=== PATIENT | female | born 1960 | race Caucasian/White ===

== ENCOUNTER 2018-02-08 08:23 | Outpatient (CLI) | payer MEDICARE | END 2018-02-08 08:24 | disposition home or self-care (01) | LOC: BICMAMMO 08:23 | PROVIDERS: ATTEND Obstetrics & Gynecology | DX: Z12.31 Encounter for screening mammogram for malignant neoplasm of breast (principal); R92.1 Mammographic calcification found on diagnostic imaging of breast | CPT/HCPCS: 77063; 77067 ==

== ENCOUNTER 2018-05-10 10:29 | Emergency (ER) | payer MEDICARE ==
[2018-05-10 11:28] LABS: #Basophils 0.1 thou/uL (0.0-0.2); #Eosinphils 0.3 thou/uL (0.0-0.7); #Lymphocytes 4.1 thou/uL (1.20-3.40); #Monocytes 0.7 thou/uL (0.11-0.59); #Neutrophils 4.7 thou/uL (1.40-6.50); %Basophils 0.9 % (0.0-1.0); %Lymphocytes 41.5 % (21.0-51.0); %Monocytes 7.1 % (0.0-10.0); %Neutrophils 47.5 % (42.0-75.0); Hemoglobin 14.9 g/dL (12.0-16.0); Mean Corpuscular HGB CONC 32.8 g/dL (32.0-36.0); Mean Corpuscular Hemoglobin 29.9 pg (27.0-31.0); Mean Corpuscular Volume 91.1 fL (78.0-98.0); Mean Platelet Volume 9.1 fL (7.4-10.4); Platelet Count 191 thou/uL (130-400); RBC Distribution Width 12.8 % (11.5-14.5); Red Blood Cell (RBC) Count 4.97 mill/uL (4.20-5.40); White Blood Cell (WBC) Count 9.8 thou/uL (4.8-10.8)
[2018-05-10 11:53] LABS: ALT (SGPT) 26 U/L (8-55); AST (SGOT) 21 U/L (5-34); Albumin 4.4 g/dL (3.5-5.0); Alkaline Phosphatase 73 U/L (40-150); Anion Gap 14 mmol/L (10-20); BUN (Urea Nitrogen) 8 mg/dL (9.8-20.1); Bilirubin, Total 0.4 mg/dL (0.2-1.2); Calc. Creatinine Clearance 0 mL/min (70-130); Calcium 10.8 mg/dL (7.8-10.44); Carbon Dioxide 25 mmol/L (22-29); Chloride 96 mmol/L (98-107); Estimated GFR-MDRD 89; Globulin 3.3 g/dL (2.4-3.5); Glucose 100 mg/dL (70-105); Lipase 19 U/L (8-78); Potassium 3.6 mmol/L (3.5-5.1); Protein, Total 7.7 g/dL (6.0-8.3); Sodium 131 mmol/L (136-145)
[2018-05-10 11:54] LABS: Bilirubin Negative (Negative); Blood, Urine Negative (Negative); Clarity CLEAR (Clear); Glucose, Urine (Dipstick) Negative (Negative); Leukocyte Negative (Negative); Nitrite Negative (Negative); Protein, Urine (Dipstick) Negative (Neg-Trace); Specific Gravity, Urine 1.004 (1.002-1.036); Urobilinogen 0.2 mg/dL (0.2-1.0); pH, Urine 6.5 (5.0-9.0)
[2018-05-10] MEDS ORDERED: Cyclobenzaprine 10 MG TAB ONE (11:54)
[2018-05-10] MEDS ORDERED: Ketorolac Tromethamine 60 MG/2 ML VIAL ONE (11:54)
--- NOTE | 2018-05-10 13:01 | RAD ---
LEFT HIP TWO VIEWS: History: Left hip pain. FINDINGS/IMPRESSION: No fracture, dislocation, or bony destruction is identified. There are mild degenerative changes. POS: [facility]
--- NOTE | 2018-05-10 13:07 | RAD ---
CHEST ONE VIEW ABDOMEN TWO VIEWS: History: Abdominal pain, nausea. FINDINGS/IMPRESSION: The heart size is normal. The lungs are well expanded without focal areas of consolidation, pneumotho rax, or pleural effusions. No free air or differential fluid levels are seen. The bowel gas pattern is unremarkable. There are d egenerative changes in the spine. POS: [facility]
== END 2018-05-10 13:57 | disposition home or self-care (01) ==
LOC: ERS 10:29
DX: S76.012A Strain of muscle, fascia and tendon of left hip, initial encounter (principal); F41.9 Anxiety disorder, unspecified; E03.9 Hypothyroidism, unspecified; I10 Essential (primary) hypertension; F17.210 Nicotine dependence, cigarettes, uncomplicated; Z79.899 Other long term (current) drug therapy; W19.XXXA Unspecified fall, initial encounter
CPT/HCPCS: 36415; 74022; 80053; 81003; 83690; 85025; 96372; J1885

== ENCOUNTER 2019-04-02 08:12 | Outpatient (CLI) | payer MEDICARE ==
--- NOTE | 2019-04-02 09:00 | MMO ---
Bilateral MAMMO Bilat Screen [facility]. CLINICAL HISTORY: Patient is 58 years old and is seen for screening. The patient has no family history of breast cancer. The patient has no personal history of cancer. VIEWS: The views performed were: bilateral craniocaudal; bilateral craniocaudal with tomosynthesis; and bilateral mediolateral oblique with tomosynthesis. FILMS COMPARED: The present examination has been compared to prior imaging studies performed at [facility] on 02/08/2018, and at [facility] on 04/25/2016. This study has been interpreted with the assistance of computer-aided detection. MAMMOGRAM FINDINGS: There are scattered fibroglandular densities. Benign calcifications are noted bilaterally. There are no suspicious masses, suspicious calcifications, or new areas of architectural distortion. IMPRESSION: THERE IS NO MAMMOGRAPHIC EVIDENCE OF MALIGNANCY. A ROUTINE FOLLOW-UP MAMMOGRAM IN 1 YEAR IS RECOMMENDED. THE RESULTS OF THIS EXAM WERE SENT TO THE PATIENT. ACR BI-RADS Category 2 - Benign finding MAMMOGRAPHY NOTE: 1. A negative mammogram report should not delay a biopsy if a dominant of clinically suspicious mass is present. 2. Approximately 10% to 15% of breast cancers are not detected by mammography. 3. Adenosis and dense breasts may obscure an underlying neoplasm. Reported by: MARY MCCURDY MD Electonically Signed: [id number]
== END 2019-04-02 08:13 | disposition home or self-care (01) ==
LOC: BICMAMMO 08:12
PROVIDERS: ATTEND Family Medicine
DX: Z12.31 Encounter for screening mammogram for malignant neoplasm of breast (principal)
CPT/HCPCS: 77063; 77067

== ENCOUNTER 2020-01-21 08:07 | Outpatient (CLI) | payer MEDICARE ==
--- NOTE | 2020-01-21 08:51 | ULT ---
HEPATIC DUPLEX EVALUATION: Date; 01/21/2020 INDICATION: 59-year-old female with history of hepatitis C and abnormal LFTs. COMPARISON: None. FINDINGS: The liver is coarse in appearance with a nodular contour and increased echogenicity consistent with c hanges of chronic liver disease. The liver measured 22.41 cm in length, which is large. Visualized ga llbladder appeared within normal limits. Visualized aspects of the pancreas were within normal limits . Spleen measured 9.7 cm. Common bile duct measured 4.8 mm. No free fluid identified. No focal hepati c lesion noted. No sonographic Ortiz's sign noted. There is appropriate hepatopetal flow seen within the hepatic vasculature. There are some arterial wa veforms that are superimposed on the left portal vein which is likely related to superimposed arteria l sampling of an adjacent peripheral hepatic artery. There is continuous appropriate directional flow within the left portal vein. There is appropriate flow within the splenic artery and splenic veins. There is appropriate flow within the hepatic veins, main portal vein, and right portal vein. There is appropriate flow in the hepatic artery. The visualized aorta and IVC were within normal limits. IMPRESSION: 1. Findings of chronic liver disease and hepatomegaly. 2. Appropriate hepatopetal flow within the hepatic vasculature. POS: [facility]
== END 2020-01-21 08:08 | disposition home or self-care (01) ==
LOC: BICULT 08:07
PROVIDERS: ATTEND Internal Medicine Gastroenterology
DX: K59.00 Constipation, unspecified (principal); K62.5 Hemorrhage of anus and rectum; R94.5 Abnormal results of liver function studies; E66.9 Obesity, unspecified; K76.9 Liver disease, unspecified; R16.0 Hepatomegaly, not elsewhere classified; Z86.19 Personal history of other infectious and parasitic diseases
CPT/HCPCS: 76705

== ENCOUNTER 2020-02-03 07:01 | Outpatient (CLI) | payer MEDICARE ==
[2020-02-03 12:22] LABS: ALT (SGPT) 69 U/L (8-55); AST (SGOT) 54 U/L (5-34); Albumin 4.1 g/dL (3.5-5.0); Alkaline Phosphatase 48 U/L (40-110); Anion Gap 15 mmol/L (10-20); BUN (Urea Nitrogen) 12 mg/dL (9.8-20.1); Bilirubin, Total 0.4 mg/dL (0.2-1.2); Calc. Creatinine Clearance 0 mL/min (70-130); Calcium 9.8 mg/dL (7.8-10.44); Carbon Dioxide 27 mmol/L (22-29); Chloride 100 mmol/L (98-107); Estimated GFR-MDRD 83; Glucose 101 mg/dL (70-105); Potassium 3.7 mmol/L (3.5-5.1); Protein, Total 7.1 g/dL (6.0-8.3); Sodium 138 mmol/L (136-145)
[2020-02-04 10:23] LABS: SARS-CoV-2 MS2 Positive; SARS-CoV-2 N Gene Negative; SARS-CoV-2 S Gene Negative; SARS-CoV-2 by NAA Not Detected (NotDetected); SARS-CoV-2 orf1ab Negative
== END 2020-02-03 07:02 | disposition home or self-care (01) ==
LOC: LABBT 07:01
PROVIDERS: ATTEND Internal Medicine Gastroenterology
DX: Z01.812 Encounter for preprocedural laboratory examination (principal); K62.5 Hemorrhage of anus and rectum; K59.09 Other constipation; R94.5 Abnormal results of liver function studies; E66.9 Obesity, unspecified; Z20.828 Contact with and (suspected) exposure to other viral communicable diseases; Z86.19 Personal history of other infectious and parasitic diseases
CPT/HCPCS: 80053; 82105; U0003; 36415; 87635

== ENCOUNTER 2020-03-02 13:56 | Outpatient (CLI) | payer MEDICARE ==
--- NOTE | 2020-03-02 14:30 | CT ---
CT pulmonary lung scan without IV contrast INDICATION: Lung cancer screening protocol; 59-year-old female with history of personal nicotine depe ndence; former smoker of 50 years; approximately 1 pack per day; quit one year ago COMPARISON: CT the abdomen and pelvis with contrast dated February 03, 2020 FINDINGS: LUNGS: Nodules\mass: 3 mm pulmonary nodule seen within the posterior lateral left lower lobe is stable. Ther e is a 5 mm pulmonary nodule within the right upper lobe on image 69 series 3. No suspicious pulmonary nodule is identified. Emphysema: There is a mild centrilobular emphysema Additional findings: There are coronary artery and thoracic aortic calcifications. Mediastinum: No lymphadenopathy. Upper abdomen: No abnormality. Osseous structures: There is scattered degenerative and osteoarthritic change present. No acute fract ure or subluxation demonstrated.. IMPRESSION: Lung-RADS Category 2: Benign- Continue annual screening with LDCT in 12 months Category S: None. Category C: Not applicable.
== END 2020-03-02 13:57 | disposition home or self-care (01) ==
LOC: BICCT 13:56
PROVIDERS: ATTEND Registered Nurse
DX: Z12.2 Encounter for screening for malignant neoplasm of respiratory organs (principal); Z87.891 Personal history of nicotine dependence
CPT/HCPCS: G0297

== ENCOUNTER 2020-12-28 10:22 | Outpatient (CLI) | payer MEDICARE ==
[2020-12-28 21:37] LABS: SARS-CoV-2 PCR by NAA Not Detected (NotDetected)
== END 2020-12-28 10:23 | disposition home or self-care (01) ==
LOC: LABBT 10:22
PROVIDERS: ATTEND Internal Medicine Gastroenterology
DX: Z01.812 Encounter for preprocedural laboratory examination (principal); K62.5 Hemorrhage of anus and rectum; K59.09 Other constipation; R94.5 Abnormal results of liver function studies; E66.9 Obesity, unspecified; Z86.19 Personal history of other infectious and parasitic diseases; Z20.822 Contact with and (suspected) exposure to COVID-19
CPT/HCPCS: U0003; U0005

== ENCOUNTER 2020-12-31 12:25 | Day surgery (SDC) | payer MEDICARE ==
[2020-12-30 11:31] VITALS: BMI 42.9
[2020-12-31] MEDS ORDERED: PROPOFOL 200 MG/20 ML VIAL ONE (13:09)
[2020-12-31] MEDS ORDERED: Lidocaine 1% PF 5 ML VIAL ONE (13:09)
== END 2020-12-31 14:15 | disposition home or self-care (01) ==
LOC: SDC 12:25
PROVIDERS: ATTEND Internal Medicine Gastroenterology
PROC: 0DBN8ZX Excision of Sigmoid Colon, Via Natural or Artificial Opening Endoscopic, Diagnostic (ICD-10-PCS; principal; 2020-12-31)
PROC: 0DBN8ZX Excision of Sigmoid Colon, Via Natural or Artificial Opening Endoscopic, Diagnostic (ICD-10-PCS; 2020-12-31)
DX: K63.5 Polyp of colon (principal); K64.8 Other hemorrhoids; K55.20 Angiodysplasia of colon without hemorrhage; K59.09 Other constipation; Z79.899 Other long term (current) drug therapy; Z98.51 Tubal ligation status
CPT/HCPCS: 88305; J2704

== ENCOUNTER 2021-02-26 07:24 | Outpatient (CLI) | payer MEDICARE | END 2021-02-26 07:25 | disposition home or self-care (01) | LOC: ULT 07:24 | PROVIDERS: ATTEND Internal Medicine Gastroenterology | DX: R94.5 Abnormal results of liver function studies (principal); K76.0 Fatty (change of) liver, not elsewhere classified; K80.20 Calculus of gallbladder without cholecystitis without obstruction | CPT/HCPCS: 76705 ==

== ENCOUNTER 2021-03-02 07:54 | Outpatient (CLI) | payer MEDICARE | END 2021-03-02 07:55 | disposition home or self-care (01) | LOC: BICMAMMO 07:54 | PROVIDERS: ATTEND Registered Nurse | DX: Z12.31 Encounter for screening mammogram for malignant neoplasm of breast (principal); Z13.820 Encounter for screening for osteoporosis; Z12.2 Encounter for screening for malignant neoplasm of respiratory organs | CPT/HCPCS: 71271; 77063; 77067; 77080 ==

== ENCOUNTER 2022-01-12 10:37 | Emergency (ER) | payer MEDICARE ==
[~2022-01-12 10:37] MED LIST: Iopamidol-370 76% 500 ML 1 ML ONE
[2022-01-12 11:04] LABS: #Eosinphils 0.1 thou/uL (0.0-0.7); #Lymphocytes 3.6 thou/uL (1.20-3.40); #Monocytes 0.6 thou/uL (0.11-0.59); #Neutrophils 3.7 thou/uL (1.40-6.50); %Basophils 0.6 % (0.0-1.0); %Eosinophils 1.7 % (0.0-10.0); %Lymphocytes 44.7 % (21.0-51.0); %Monocytes 7.9 % (0.0-10.0); %Neutrophils 45.1 % (42.0-75.0); Hemoglobin 14.1 g/dL (12.0-16.0); Mean Corpuscular HGB CONC 32.5 g/dL (32.0-36.0); Mean Corpuscular Hemoglobin 28.7 pg (27.0-31.0); Mean Corpuscular Volume 88.2 fL (78.0-98.0); Mean Platelet Volume 8.4 fL (7.4-10.4); Platelet Count 234 thou/uL (130-400); RBC Distribution Width 12.4 % (11.5-14.5); Red Blood Cell (RBC) Count 4.93 mill/uL (4.20-5.40); White Blood Cell (WBC) Count 8.1 thou/uL (4.8-10.8)
[2022-01-12 11:29] LABS: ALT (SGPT) 24 U/L (8-55); AST (SGOT) 23 U/L (5-34); Albumin 4.2 g/dL (3.4-4.8); Alkaline Phosphatase 59 U/L (40-110); Anion Gap 13 mmol/L (10-20); BUN (Urea Nitrogen) 8 mg/dL (9.8-20.1); Bilirubin, Total 0.6 mg/dL (0.2-1.2); Calc. Creatinine Clearance 0 mL/min (70-130); Calcium 11.4 mg/dL (7.8-10.44); Carbon Dioxide 27 mmol/L (23-31); Chloride 99 mmol/L (98-107); Estimated GFR 94; Globulin 3.4 g/dL (2.4-3.5); Glucose 97 mg/dL (80-115); Lipase 165 U/L (8-78); Potassium 3.9 mmol/L (3.5-5.1); Protein, Total 7.6 g/dL (5.8-8.1); Sodium 135 mmol/L (136-145)
[2022-01-12] MEDS ORDERED: Lidocaine Viscous Sol 2% 15 ml UD Cup ONE (13:22)
[2022-01-12] MEDS ORDERED: Mag-Al 1200 mg/1200 mg/30 ML UDCUP ONE (13:22)
== END 2022-01-12 15:26 | disposition home or self-care (01) ==
LOC: ERS 10:37
DX: K29.70 Gastritis, unspecified, without bleeding (principal); I10 Essential (primary) hypertension; E03.9 Hypothyroidism, unspecified; Z79.890 Hormone replacement therapy; Z87.891 Personal history of nicotine dependence; Z79.899 Other long term (current) drug therapy
CPT/HCPCS: 36415; 71045; 74177; 80053; 83690; 84484; 85025; 93005; Q9967

== ENCOUNTER 2022-04-14 09:46 | Outpatient (CLI) | payer MEDICARE | END 2022-04-14 09:47 | disposition home or self-care (01) | LOC: BICCT 09:46 | PROVIDERS: ATTEND Registered Nurse | DX: Z12.31 Encounter for screening mammogram for malignant neoplasm of breast (principal); Z12.2 Encounter for screening for malignant neoplasm of respiratory organs; Z87.891 Personal history of nicotine dependence | CPT/HCPCS: 71271; 77063; 77067 ==